=== PATIENT | female | born 1990 | race African-American/Black ===

== ENCOUNTER 2017-11-09 16:55 | Emergency (ER) | payer SELFPAY ==
[~2017-11-09] VITALS: Ht 157.5 cm; Wt 103.0 kg
[~2017-11-09 16:55] MED LIST: ALBUPOW26; BUSP5TAB22
[2017-11-09 20:45] VITALS: BP 131/77
[2017-11-09] MEDS ORDERED: cefTRIAXone SOD 1,000 MG VL IM ONE (22:00)
[2017-11-09] MEDS ORDERED: KETOROLAC TROMETH 60MG/2ML VIAL IM ONE (22:00)
[2017-11-09] MEDS ORDERED: LIDOCAINE 1% (LOCAL ANESTH.) PF 5ml SDV ONE (22:08)
== END 2017-11-09 22:18 | disposition home or self-care (01) ==
LOC: ER 17:04
DX: K08.89 Other specified disorders of teeth and supporting structures (principal)
CPT/HCPCS: 96372; 99283; J0696; J1885

== ENCOUNTER 2022-10-01 13:29 | Emergency (ER) | payer MEDICAID ==
[~2022-10-01] VITALS: Ht 154.9 cm; Wt 111.0 kg
[~2022-10-01 13:29] MED LIST changes: +AMPI500C8 PO
[2022-10-01 13:38] VITALS: BP 130/71
[2022-10-01 13:51] LABS: Eosinophils # (auto) 0.1 10 ^3/uL (0-0.8); Monocytes # (auto) 0.4 10 ^3/uL (0-1.3)
[2022-10-01 13:53] LABS: Basophils # (auto) 0.1 10 ^3/uL (0-0.2); Basophils % (auto) 1.2 % (0.0-2.0); Eosinophils % (auto) 1.6 % (0.0-7.0); Hematocrit 37.3 % (36.0-46.0); Hemoglobin 12.2 g/dL (12.2-16.2); Lymphocytes # (auto) 2.9 10 ^3/uL (0.4-5.4); Lymphocytes % (auto) 50.7 % (10.0-50.0); Mean Corpuscular Hemoglobin 25.3 pg (28.0-32.0); Mean Corpuscular Hgb Conc. 32.6 g/dL (32.0-36.0); Mean Corpuscular Volume 77.6 fL (80.0-100.0); Monocytes % (auto) 6.5 % (0.0-12.0); Neutrophils # (auto) 2.3 10 ^3/uL (1.6-8.6); Red Blood Cells 4.81 10^6/uL (4.0-5.20); Red Cell Distribution Width 18.2 % (11.8-14.3); White Blood Cell 5.7 10^3/uL (4.4-10.8)
[2022-10-01 14:21] LABS: Albumin 3.4 g/dL (3.4-5.0); Calcium 8.5 mg/dL (8.5-10.1); Potassium 3.8 mmol/L (3.5-5.1)
[2022-10-01 14:28] LABS: BUN/Creatinine Ratio 11.8 (10.0-20.0); Bilirubin, Total 0.2 mg/dL (0.2-1.0); Total Protein 7.6 g/dL (6.4-8.2)
[2022-10-01] MEDS ORDERED: ONDA-144 PO (15:04)
== END 2022-10-01 15:21 | disposition left against medical advice (07) ==
LOC: ER 13:29
DX: B34.9 Viral infection, unspecified (principal); R11.2 Nausea with vomiting, unspecified; R10.2 Pelvic and perineal pain; Z79.2 Long term (current) use of antibiotics; Z79.899 Other long term (current) drug therapy
CPT/HCPCS: 36415; 80053; 84702; 85025